=== PATIENT | male | born 2000 | race American Indian/Alaskan Native ===

== ENCOUNTER 2018-02-10 22:40 | Emergency (ER) | payer MEDICAID ==
[2018-02-11] MEDS ORDERED: TYLENOL PO ONE (01:56)
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
[2018-02-11 03:03] VITALS: BP 134/82
== END 2018-02-11 03:59 | disposition home or self-care (01) ==
LOC: ED 22:40
DX: J30.2 Other seasonal allergic rhinitis (principal); T20.16XA Burn of first degree of forehead and cheek, initial encounter; X11.8XXA Contact with other hot tap-water, initial encounter; Y93.89 Activity, other specified; Y92.89 Other specified places as the place of occurrence of the external cause; Y99.8 Other external cause status
CPT/HCPCS: 99282